=== PATIENT | female | born 2000 | race Caucasian/White ===

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

== ENCOUNTER 2022-09-24 14:30 | Outpatient (CLI) | payer OTHER, SELFPAY ==
[2022-09-24] VITALS (7 sets, daily range): BP systolic 91–102; BP diastolic 50–61; PULSE 66–103; RESP 14–16; TEMP 36.3–37.4; O2SAT 96–98; BMI 22.1
[2022-09-24] MEDS: Lactated Ringers 1,000 ML 999 ML IV (14:45)
[2022-09-24 14:57] LABS: Hemoglobin 6.8 g/dL (12.0-15.0); Mean Corp Hgb Conc 29.6 g/dL (32-36); Mean Corpuscular Hgb 27.8 pg (27.0-32.0); Mean Corpuscular Volume 93.9 fL (81-99); Mean Platelet Vol. 10.2 fl (6.2-12.0); Platelet Count 209 K/mm3 (150-450); RBC Distribution Width CV 14.5 % (11.6-14.6); RBC Distribution Width SD 48.1 fl (35.1-43.9); Red Blood Count 2.45 M/mm3 (4.2-5.4); White Blood Count 7.8 K/mm3 (4.4-11.0)
--- NOTE | 2022-09-24 15:38 | NURSING ---
Patient delivered at home with sales assistant displays on 09/17/22 and reports that she hemorrhaged. Patient unsure of EBL. Patient complains of a headache and low energy for the last 3 days. Patient is pale. HR regular, lungs clear, no swelling noted. Vital signs WNL. No complaints of dizziness. Dr. Negro notified of CBC results. Ordered 2 units of PRBCs and will monitor patient overnight. Patient agreeable to plan.
--- NOTE | 2022-09-24 17:59 | HP.PCM.OB_ITS ---
History and Physical Date of Admission: 09/24/22 HPI: 22-year-old day 3 status post spontaneous vaginal delivery with schedule announcer at home. Per schedule announcer report patient had hemorrhage with delivery of placenta. At that time had recommended patient go to ER for evaluation, however patient declined. Since that time she has been fatigued and overall slowly improving. However today she is still feeling fatigued and has a headache therefore she was sent for evaluation. Denies any visual changes, dyspnea, dizziness, nausea or vomiting, right upper quadrant pain, fevers or chills. Lochia is minimal and has been since after stabilization after delivery. No foul smelling lochia. [employer] history: G1: Term G2: Term , hemorrhage Medical history: Denies Surgical history: denies Medications: Multivitamin, iron, vitamin D Allergies: No known drug allergies Family history: Denies history of blood clots or bleeding disorders Social history: Denies tobacco, alcohol, drug use Review of system: Negative otherwise stated above Physical exam: BP 109/58, T 97.9F, O2 saturation 100% on RA General: No acute distress, comfortable in bed. Pale HEENT: Normal cephalic/atraumatic, PERRLA Cardiorespiratory: No increased effort, regular heart rate Abdomen: Soft, nontender, fundus below umbilicus, nontender. Extremities: No edema Neurologic: Cranial nerves II through XII grossly intact, no focal deficits Musculoskeletal: Moves all extremities equally, strength out of 5 throughout extremities CBC: Hemoglobin 6.8, no leukocytosis, a positive blood type Assessment/plan: 22-year-old day 3 status post spontaneous vaginal delivery, admitted for management of anemia. ?Patient had home delivery with schedule announcer on 09/21/2022. Had hemorrhage with delivery of placenta. Bleeding has since resolved. Patient reports fatigue and headache. She demonstrates pallor on exam. Anemia on labs. ?We will treat anemia with 2 units of packed red blood cells. ?Admit for observation overnight ?Repeat CBC in the morning. ?Tylenol and ibuprofen as needed for pain IV fluid: Hep-Lock IV, status post 1 L LR bolus, 2 units PRBCs pending DVT prophylaxis: SCDs while in bed Diet: Regular Dispo: Likely home tomorrow
[2022-09-24] MEDS: 0.9% Normal Saline 1,000 ML IV.SOLN. 1000 ML OPERA.SITE (18:28)
[2022-09-24] MEDS: Acetaminophen 500 MG Tablet 1000 MG PO (18:34)
--- NOTE | 2022-09-24 19:31 | NURSING ---
Vitals recorded in [facility] at 1829 were taken at 1844. Time cannot be edited.
[2022-09-24] MEDS: Ibuprofen 600 MG Tablet PO (20:45)
--- NOTE | 2022-09-24 23:32 | NURSING ---
Second unit of PRBCs infused. Pt tolerated well and no complications. Continues to report headache 02/26.
[2022-09-24] MEDS: 0.9% Saline Lock 10 ML Syringe IV (23:54)
[2022-09-25 04:59] VITALS: BP 94/47; PULSE 69; RESP 14; TEMP 36.1; O2SAT 97
[2022-09-25 05:15] LABS: Hemoglobin 9.8 g/dL (12.0-15.0); Mean Corp Hgb Conc 31.6 g/dL (32-36); Mean Corpuscular Hgb 28.6 pg (27.0-32.0); Mean Corpuscular Volume 90.4 fL (81-99); Mean Platelet Vol. 10.1 fl (6.2-12.0); Platelet Count 183 K/mm3 (150-450); RBC Distribution Width CV 14.5 % (11.6-14.6); RBC Distribution Width SD 46.5 fl (35.1-43.9); Red Blood Count 3.43 M/mm3 (4.2-5.4); White Blood Count 7.8 K/mm3 (4.4-11.0)
[2022-09-25 07:52] VITALS: BP 94/55; PULSE 75; RESP 18; TEMP 36.9; O2SAT 96
[2022-09-25] MEDS: Acetaminophen 500 MG Tablet 1000 MG PO (09:25)
--- NOTE | 2022-09-25 09:34 | DCINST_ITS ---
Discharge Instructions Diet Discharge Diet: No restrictions Activity Discharge Activity: Return to Normal Activity, May Drive and May Shower May resume sexual activity in: 4-6 weeks Weight Bearing Status: Weight bearing as tolerated Dressing / Incision Call your doctor if your incision/area has: Continuous Slow Oozing and Foul Smelling Discharge Call your doctor if you observe: Fever of 101 or Higher, Shortness of breath and Chest pain Follow Up Care Please Follow Up With: Artie Negro MD When: 1 to 2 weeks Test Results: Test results from this visit will be discussed in further detail at your follow- up appointment, if applicable. Discharge Plan Admission Reason For Visit: POST HEMORRHAGE Attending Provider: Sonya Negro Primary Care Provider: Care Physician,Krystina Primary Discharge Orders/Prescriptions Prescriptions: No Action vit,[id number] 1 TABLET tablet 1 tab PO DAILY ferrous sulfate 325 MG tablet 325 mg PO BID cholecalciferol (vitamin D3) 2,000 UNIT capsule 4,000 unit PO BID Referrals / Follow Up: Care Physician,No Primary [Primary Care Provider] - Disposition Patient Disposition: Home, Self Care
--- NOTE | 2022-09-25 09:34 | PCM.PN.OB ---
Subjective Subjective Patient with headache resolved with Tylenol and ibuprofen. Denies visual changes, chest pain, shortness of breath, right or quadrant pain. Denies dizziness, weakness. Feels improved from yesterday Objective Data Objective Data Vital Signs: Vital Signs Temp Pulse Resp BP Pulse Ox O2 Del Method 98.5 F 75 18 94/55 L 96 Room Air 09/25/22 07:52 09/25/22 07:52 09/25/22 07:52 09/25/22 07:52 09/25/22 07:52 09/25/22 07:52 Oxygen Delivery Method Room Air Weight: 125 lb Body Mass Index (BMI) 22.1 Intake & Output: Intake and Output for Last 24 Hours 09/23/22 09/24/22 09/25/22 23:59 23:59 23:59 Intake Total 1800 / 1800 Balance 1800 / 1800 Lab / Micro Data Result Diagrams: 09/25/22 05:07 Labs: Laboratory Results - last 24 hr 09/24/22 14:40: Blood Type A POSITIVE, Antibody Screen NEGATIVE 09/24/22 14:40: WBC 7.8, RBC 2.45 L, Hgb 6.8 L, Hct 23.0 L, MCV 93.9, MCH 27.8, MCHC 29.6 L, RDW Std Deviation 48.1 H, RDW Coeff of Tee 14.5, Plt Count 209, MPV 10.2 09/24/22 14:40: Crossmatch See Detail 09/25/22 05:07: WBC 7.8, RBC 3.43 L, Hgb 9.8 L, Hct 31.0 L, MCV 90.4, MCH 28.6, MCHC 31.6 L D, RDW Std Deviation 46.5 H, RDW Coeff of Tee 14.5, Plt Count 183, MPV 10.1 Physical Exam Const alert, oriented x3, no apparent distress, average body habitus, healthy appearing and well nourished HEENT normocephalic and moist oral mucous membranes Eyes PERRL Neck full ROM Resp normal respiratory effort, no retractions and no use of accessory muscles GI GI Narrative: Soft, nontender, uterus firm and below umbilicus Extremity normal to inspection, full ROM and no clubbing, cyanosis or edema Neuro moves all extremities and no focal motor deficits Psych mental status grossly normal, affect normal, speech normal and activity/motor behavior normal Assessment & Plan (1) hemorrhage: PLAN: day 4 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 Patient was instructed by handstitching machine collar feller to go to ER, patient did not after feeling weakness. Patient admitted yesterday with acute blood loss anemia. Now status post 2 units packed red blood cells. Vital signs stable, hemoglobin level stable. Patient asymptomatic. Denies vaginal bleeding. Headache resolved with Tylenol and ibuprofen, blood pressures within normal limits. Educated patient on anemia, already taking iron at home, to continue. Discussed headaches and signs and symptoms of preeclampsia. Patient states understanding to discharge home today
== END 2022-09-25 10:35 | disposition home or self-care (01) ==
LOC: WPOUT 14:40 → WP 14:41
PROVIDERS: Referring Provider Student in an Organized Health Care Education/Training Program; Visit Provider Student in an Organized Health Care Education/Training Program
DX: O72.1 Other immediate postpartum hemorrhage (principal); O90.81 Anemia of the puerperium; D62 Acute posthemorrhagic anemia; O99.893 Other specified diseases and conditions complicating puerperium; R51.9 Headache, unspecified
CPT/HCPCS: 96360; 36415; 85027; 86850; 86900; 86901; 86920; 99221; J7030; J7120; P9016; A4216; G0378